=== PATIENT | female | born 1990 | race Caucasian/White ===

== ENCOUNTER 2017-11-15 19:02 | Emergency (ER) | payer OTHER, MEDICAID ==
[2017-11-15 21:50] LABS: ADD MAN DIFF? NO
[2017-11-15 21:52] LABS: BASOPHILS % 0.3 % (0.0-2.0); EOSINOPHILS # 0.2 10^3/ul (0.0-0.5); EOSINOPHILS % 2.2 % (0.0-7.0); HEMATOCRIT 41.9 % (37.0-47.0); HEMOGLOBIN 14.3 g/dl (12.0-16.0); LYMPHOCYTES # 3.3 10^3/ul (0.8-2.9); LYMPHOCYTES % 34.6 % (15.0-51.0); MEAN CORPUSCULAR HEMOGLOBIN 31.5 pg (29.0-33.0); MEAN CORPUSCULAR HGB CONC 34.1 g/dl (32.0-37.0); MEAN CORPUSCULAR VOLUME 92.3 fl (82.0-101.0); MONOCYTE # 0.5 10^3/ul (0.3-0.9); NEUTROPHIL # 5.6 10^3/ul (1.6-7.5); NEUTROPHILS % 57.6 % (39.0-77.0); PLATELET COUNT 241 10^3/UL (140-415); RED BLOOD COUNT 4.54 10^6/ul (4.20-5.40)
[2017-11-15 21:52] LABS: WHITE BLOOD COUNT 9.6 10^3/ul (4.8-10.8)
[2017-11-15 22:15] LABS: ADD UMIC YES; UR ASCORBIC ACID NEGATIVE (NEGATIVE); UR BILIRUBIN (Dip) NEGATIVE (NEGATIVE); UR BLOOD (Dip) 2+ mg/dL (NEGATIVE); UR CLARITY CLEAR (CLEAR); UR COLOR YELLOW (YELLOW); UR GLUCOSE (Dip) NEGATIVE (NEGATIVE); UR KETONES (Dip) TRACE mg/dL (NEGATIVE); UR LEUKOCYTE ESTERASE (Dip) NEGATIVE Leu/ul (NEGATIVE); UR NITRITE (Dip) NEGATIVE (NEGATIVE); UR RBC 1 /HPF (0-5); UR SPECIFIC GRAVITY (Dip) 1.015 (1.003-1.030); UR SQUAMOUS EPITHELIAL CELL FEW /HPF (FEW); UR TOTAL PROTEIN (Dip) NEGATIVE (NEGATIVE); UR UROBILINOGEN (Dip) NEGATIVE (NEGATIVE); UR WBC 1 /HPF (0-5)
== END 2017-11-15 23:14 | disposition home or self-care (01) ==
LOC: FTE 19:02
DX: O20.9 Hemorrhage in early pregnancy, unspecified (principal); R10.2 Pelvic and perineal pain; Z3A.08 8 weeks gestation of pregnancy
CPT/HCPCS: 36415; 76801; 81001; 81025; 84702; 85025; 86900; 86901; 99284-25

== ENCOUNTER 2018-10-18 18:42 | Inpatient (IN) | payer OTHER ==
[2018-10-18 19:34] LABS: ADD UMIC NO; UR ASCORBIC ACID NEGATIVE (NEGATIVE); UR BILIRUBIN (Dip) NEGATIVE (NEGATIVE); UR BLOOD (Dip) NEGATIVE (NEGATIVE); UR CLARITY CLEAR (CLEAR); UR COLOR YELLOW (YELLOW); UR GLUCOSE (Dip) NEGATIVE (NEGATIVE); UR KETONES (Dip) 2+ mg/dL (NEGATIVE); UR LEUKOCYTE ESTERASE (Dip) NEGATIVE Leu/ul (NEGATIVE); UR NITRITE (Dip) NEGATIVE (NEGATIVE); UR SPECIFIC GRAVITY (Dip) 1.011 (1.003-1.030); UR TOTAL PROTEIN (Dip) NEGATIVE (NEGATIVE); UR UROBILINOGEN (Dip) NEGATIVE (NEGATIVE)
[2018-10-18 19:48] LABS: ADD MAN DIFF? NO
[2018-10-18 19:49] LABS: WHITE BLOOD COUNT 9.6 10^3/ul (4.8-10.8)
[2018-10-18 19:49] LABS: BASOPHILS % 0.2 % (0.0-2.0); EOSINOPHILS # 0.1 10^3/ul (0.0-0.5); EOSINOPHILS % 0.9 % (0.0-7.0); HEMOGLOBIN 10.5 g/dl (12.0-16.0); LYMPHOCYTES # 2.3 10^3/ul (0.8-2.9); LYMPHOCYTES % 23.8 % (15.0-51.0); MEAN CORPUSCULAR HEMOGLOBIN 27.9 pg (29.0-33.0); MEAN CORPUSCULAR HGB CONC 32.8 g/dl (32.0-37.0); MEAN CORPUSCULAR VOLUME 85.1 fl (82.0-101.0); MEAN PLATELET VOLUME 11.6 fl (7.4-10.4); MONOCYTE # 0.6 10^3/ul (0.3-0.9); MONOCYTES % 6.1 % (0.0-11.0); NEUTROPHIL # 6.6 10^3/ul (1.6-7.5); NEUTROPHILS % 68.7 % (39.0-77.0); PLATELET COUNT 260 10^3/UL (140-415); RED BLOOD COUNT 3.76 10^6/ul (4.20-5.40); RED CELL DISTRIBUTION WIDTH 13.6 % (11.5-14.5)
[2018-10-18] MEDS: LACTATED RINGER'S 1,000 ML IV (21:16)
[2018-10-18] MEDS: MAGNESIUM SULFATE 4 GM/100 ML 100 ML IV (21:18)
[2018-10-18] MEDS: MAGNESIUM SULFATE 20 GM/500 ML 500 ML IV (21:41)
[2018-10-18] MEDS: BETAMET NA PHOS/AC(6 MG/ML) 2 ML INJ SYG IM (23:42)
[2018-10-19] MEDS: MAGNESIUM SULFATE 20 GM/500 ML 500 ML IV ×2 (06:33→15:41)
[2018-10-19] MEDS: LACTATED RINGER'S 1,000 ML IV ×2 (06:34→20:55)
[2018-10-19 08:26] LABS: MAGNESIUM 5.7 mg/dl (1.7-2.5)
[2018-10-19 13:07] LABS: MAGNESIUM 6.3 mg/dl (1.7-2.5)
[2018-10-19 18:54] LABS: MAGNESIUM 4.9 mg/dl (1.7-2.5)
[2018-10-19] MEDS: BETAMET NA PHOS/AC(6 MG/ML) 2 ML INJ SYG IM (23:46)
[2018-10-20 01:27] LABS: MAGNESIUM 5.4 mg/dl (1.7-2.5)
[2018-10-20] MEDS: MAGNESIUM SULFATE 20 GM/500 ML 500 ML IV (04:54)
[2018-10-20] MEDS: LACTATED RINGER'S 1,000 ML IV (08:06)
[2018-10-20 08:57] LABS: MAGNESIUM 5.8 mg/dl (1.7-2.5)
[2018-10-20] MEDS: PRENATAL VITAMIN PO (09:12)
[2018-10-20 12:38] LABS: MAGNESIUM 5.5 mg/dl (1.7-2.5)
[2018-10-20] MEDS: NIFEdipine 10 MG CAP PO (18:07)
[2018-10-20] MEDS ORDERED: PROGESTERONE 100 MG CAP VAG (21:00)
== END 2018-10-20 20:20 | disposition home or self-care (01) | DRG 832 ==
LOC: OBT 18:42 → L-D 18:42 → OBT 20:15 → PP1 20:37
DX: O47.02 False labor before 37 completed weeks of gestation, second trimester (principal); O26.872 Cervical shortening, second trimester; Z3A.27 27 weeks gestation of pregnancy
CPT/HCPCS: 76815; 76817; 76818; 81003; 83735; 85025; 87086

== ENCOUNTER 2018-12-31 02:30 | Inpatient (IN) | payer OTHER ==
[2018-12-31] MEDS ORDERED: MISOPROSTOL 200 MCG TAB PR ×2 (04:00→17:00)
[2018-12-31] MEDS ORDERED: OXYTOCIN 30 UNITS/LR 500 ML IV ×3 (04:00→17:00)
[2018-12-31] MEDS ORDERED: METHYLERGONOVINE 0.2 MG INJ IM ×2 (04:00→17:00)
[2018-12-31] MEDS ORDERED: CARBOPROST 250 MCG INJ IM ×2 (04:00→17:00)
[2018-12-31] MEDS ORDERED: CEFAZOLIN 2 GM/50 ML (PMX) 50 ML IVPB (04:00)
[2018-12-31] MEDS: LACTATED RINGER'S 1,000 ML IV ×3 (04:39→17:55)
[2018-12-31] MEDS: AMPICILLIN 2 GM/NS (PMX) 100 ML IVPB (05:11)
[2018-12-31 05:59] LABS: ADD MAN DIFF? NO
[2018-12-31 06:11] LABS: ABNORMAL IP MESSAGE 1; BASOPHILS % 0.4 % (0.0-2.0); EOSINOPHILS # 0.2 10^3/ul (0.0-0.5); EOSINOPHILS % 2.4 % (0.0-7.0); HEMATOCRIT 31.2 % (37.0-47.0); LYMPHOCYTES # 2.2 10^3/ul (0.8-2.9); LYMPHOCYTES % 27.4 % (15.0-51.0); MEAN CORPUSCULAR HGB CONC 32.1 g/dl (32.0-37.0); MEAN CORPUSCULAR VOLUME 81.3 fl (82.0-101.0); MEAN PLATELET VOLUME 13.6 fl (7.4-10.4); MONOCYTE # 0.4 10^3/ul (0.3-0.9); MONOCYTES % 5.1 % (0.0-11.0); NEUTROPHIL # 5.1 10^3/ul (1.6-7.5); NEUTROPHILS % 64.2 % (39.0-77.0); PLATELET COUNT 231 10^3/UL (140-415); RED BLOOD COUNT 3.84 10^6/ul (4.20-5.40); RED CELL DISTRIBUTION WIDTH 16.4 % (11.5-14.5)
[2018-12-31 06:18] LABS: POSITIVE DIFF @See below
[2018-12-31 06:22] LABS: INR 0.82; PROTIME 11.4 Sec (11.9-14.9); PT RATIO 0.9
[2018-12-31 06:23] LABS: PARTIAL THROMBOPLASTIN TIME 26.8 Sec (23.0-35.0)
[2018-12-31 07:03] LABS: HEPATITIS B SURFACE ANTIGEN NEGATIVE (NEGATIVE)
[2018-12-31] MEDS: AMPICILLIN 1 GM/NS (PMX) 50 ML IVPB (10:43)
[2018-12-31] MEDS: CITRIC ACID/NA CITRATE 30 ML CUP PO (11:39)
[2018-12-31] MEDS: FAMOTIDINE 20 MG INJ IV (11:39)
[2018-12-31] MEDS: METOCLOPRAMIDE 10 MG INJ IV (11:40)
[2018-12-31] MEDS ORDERED: morphine SULFATE/PF (10 MG/10 ML) INJ (11:54)
[2018-12-31 12:04] LABS: AMPHETAMINE/METHAMPHETAMINE Negative (NEGATIVE); BARBITURATES Negative (NEGATIVE); BENZODIAZEPINES Negative (NEGATIVE); CANNABINOIDS Negative (NEGATIVE); COCAINE Negative (NEGATIVE); OPIATES Negative (NEGATIVE)
[2018-12-31] MEDS ORDERED: ONDANSETRON 4 MG INJ (12:33)
[2018-12-31] MEDS ORDERED: PHENYLephrine (100 MCG/ML) 10ML SYG ×2 (12:36→12:50)
[2018-12-31] MEDS ORDERED: PROCHLORPERAZINE 10 MG INJ IV (13:00)
[2018-12-31] MEDS ORDERED: NALOXONE (0.4 MG/ML) INJ IV (13:00)
[2018-12-31] MEDS ORDERED: MEPERIDINE 25 MG INJ IV (13:00)
[2018-12-31] MEDS ORDERED: ONDANSETRON 4 MG INJ IV ×3 (13:00→17:00)
[2018-12-31] MEDS ORDERED: HYDROmorphONE 1 MG/5 ML IV SYRINGE IV ×3 (13:00)
[2018-12-31] MEDS ORDERED: HYDROmorphONE 0.5 MG/0.5 ML SYG IV ×2 (13:00)
[2018-12-31] MEDS ORDERED: FENTAnyl 50 MCG/ML VIAL IV ×3 (13:00)
[2018-12-31] MEDS ORDERED: KETOROLAC 30 MG INJ IV (13:00)
[2018-12-31] MEDS ORDERED: ZOLPIDEM 5 MG TAB PO ×2 (13:00→17:00)
[2018-12-31] MEDS ORDERED: DIPHENHYDRAMINE 50 MG INJ IV ×2 (13:00→17:00)
[2018-12-31] MEDS ORDERED: EPHEDrine 25 MG/5 ML SYG (13:17)
[2018-12-31] MEDS: OXYTOCIN 30 UNITS/LR 500 ML IV (13:58)
[2018-12-31 15:05] LABS: RAPID PLASMA REAGIN NONREACTIVE (NR)
[2018-12-31 15:22] LABS: HIV 1&2 ANTIBODY NEGATIVE (NEGATIVE)
[2018-12-31 15:22] LABS: HEPATITIS C VIRAL ANTIBODY NEGATIVE (NEGATIVE)
[2018-12-31] MEDS ORDERED: LANOLIN HPA 1 PKT TOP (17:00)
[2018-12-31] MEDS: SENNA/DOCUSATE NA (8.6MG/50MG) TAB PO (21:25)
[2019-01-01] MEDS: LACTATED RINGER'S 1,000 ML IV ×3 (02:27→18:30)
[2019-01-01 09:13] LABS: ADD MAN DIFF? NO
[2019-01-01 09:15] LABS: WHITE BLOOD COUNT 10.4 10^3/ul (4.8-10.8)
[2019-01-01 09:15] LABS: ABNORMAL IP MESSAGE 1; BASOPHILS % 0.4 % (0.0-2.0); EOSINOPHILS # 0.1 10^3/ul (0.0-0.5); EOSINOPHILS % 1.3 % (0.0-7.0); HEMATOCRIT 22.5 % (37.0-47.0); HEMOGLOBIN 7.2 g/dl (12.0-16.0); LYMPHOCYTES # 1.9 10^3/ul (0.8-2.9); LYMPHOCYTES % 18.3 % (15.0-51.0); MEAN CORPUSCULAR HEMOGLOBIN 26.3 pg (29.0-33.0); MEAN CORPUSCULAR VOLUME 82.1 fl (82.0-101.0); MEAN PLATELET VOLUME 13.5 fl (7.4-10.4); MONOCYTE # 0.4 10^3/ul (0.3-0.9); MONOCYTES % 3.7 % (0.0-11.0); NEUTROPHIL # 7.9 10^3/ul (1.6-7.5); NEUTROPHILS % 75.9 % (39.0-77.0); PLATELET COUNT 178 10^3/UL (140-415); RED BLOOD COUNT 2.74 10^6/ul (4.20-5.40); RED CELL DISTRIBUTION WIDTH 16.8 % (11.5-14.5)
[2019-01-01 09:22] LABS: POSITIVE DIFF @See below
[2019-01-01] MEDS: SENNA/DOCUSATE NA (8.6MG/50MG) TAB PO ×2 (09:34→21:15)
[2019-01-01] MEDS: KETOROLAC 30 MG INJ IV (09:35)
[2019-01-01] MEDS: DIPHENHYDRAMINE 50 MG INJ IV (09:35)
[2019-01-01] MEDS ORDERED: MEASLES,MUMPS,RUBELLA VACCINE INJ SC* (15:30)
[2019-01-01] MEDS: IBUPROFEN 600 MG TAB PO ×2 (17:32→23:42)
[2019-01-01] MEDS: OXYCODONE/ACETAMINOPHEN (5/325) TAB PO (17:33)
[2019-01-01] MEDS: FERROUS GLUCONATE (EC) 325 MG TAB PO (21:15)
[2019-01-02] MEDS: IBUPROFEN 600 MG TAB PO ×4 (05:41→22:47)
[2019-01-02] MEDS: SENNA/DOCUSATE NA (8.6MG/50MG) TAB PO ×2 (09:19→21:00)
[2019-01-02] MEDS: FERROUS GLUCONATE (EC) 325 MG TAB PO ×2 (09:19→21:23)
[2019-01-02] MEDS: OXYCODONE/ACETAMINOPHEN (5/325) TAB PO (09:22)
[2019-01-03] MEDS: IBUPROFEN 600 MG TAB PO ×2 (06:07→12:00)
[2019-01-03] MEDS: DIPHTH/TET/ACEL PERTUSS (ADULT) 0.5 ML VIAL IM* (09:00)
[2019-01-03] MEDS: SENNA/DOCUSATE NA (8.6MG/50MG) TAB PO (09:00)
[2019-01-03] MEDS: MEASLES,MUMPS,RUBELLA VACCINE INJ SC* (12:01)
[2019-01-03] MEDS: FERROUS GLUCONATE (EC) 325 MG TAB PO (12:02)
== END 2019-01-03 13:40 | disposition home or self-care (01) | DRG 788 ==
LOC: OBT 02:30 → L-D 02:30 → OBT 03:52 → L-D 03:52 → PP1 16:11
PROVIDERS: Obstetrics & Gynecology
PROC: 10D00Z1 Extraction of Products of Conception, Low, Open Approach (ICD-10-PCS; principal; 2018-12-31)
DX: O34.211 Maternal care for low transverse scar from previous cesarean delivery (principal); Z3A.38 38 weeks gestation of pregnancy; Z37.0 Single live birth; O99.820 Streptococcus B carrier state complicating pregnancy
CPT/HCPCS: 80307; 82962; 85025; 85610; 85730; 86592; 86703; 86803; 86850; 86900; 86901; 87340; 88307; 99464